=== PATIENT | female | born 1980 | race Two or more races ===

== ENCOUNTER 2017-06-12 08:25 | Inpatient (IN) | payer OTHER ==
--- NOTE | 2017-06-12 09:38 | HP ---
Past Medical History - Admission History of Present Illness: 37 yo @ 39 3/7 wks by first trimester ultrasound, EDC complicated by: 1. cHTN - previously on labetalol, DC'd first trimester BP range 115-153/76-99 r/o PEC, negative HELLP labs 24 H urine protein - 198 (05/15/2017) 2. AMA - s/p favorable [id number], favorable AFP EFW 2424g (13%) Patient presents for scheduled induction of labor. She reports movement, denies leakage of fluid, vaginal bleeding or pain. History Source: Patient Limitations to Obtaining History: No Limitations - Past Medical History Cardiovascular: No: HTN Pulmonary: No: Asthma Reproductive: Yes: Polycystic Ovary Syndrome ...: 1 ...Para: 0 ... Weeks Gestation by Dates: 39.3 ...EDC by Sono: 06/16/17 Heme/Onc: No: Anemia Rheumatology: Yes: Fibromyalgia - Past Surgical History Hx Myomectomy: No Hx Transabdominal Cerclage: No Additional Surgical History: Corrective eye surgery - Smoking History Smoking history: Never smoked - Alcohol/Substance Use Hx Alcohol Use: No History of Substance Use: reports: None - Social History Usual Living Arrangement: Yes: With Spouse History of Recent Travel: No Home Medications - Allergies Allergies/Adverse Reactions: Allergies Allergy/AdvReac Type Severity Reaction Status Date / Time No Known Allergies Allergy Verified 06/12/17 09:47 - Home Medications Home Medications: Ambulatory Orders Ferrous Sulfate 325 mg PO DAILY 05/13/17 Pnv No.95/Ferrous Fum/Folic AC [ Vitamin Tablet] 1 each PO DAILY Family Disease History - Family Disease History Family History: Denies Review of Systems - Review of Systems Constitutional: reports: No Symptoms HENT: reports: No Symptoms Cardiovascular: reports: No Symptoms Respiratory: reports: No Symptoms Gastrointestinal: reports: No Symptoms Genitourinary: reports: No Symptoms Musculoskeletal: reports: No Symptoms Integumentary: reports: No Symptoms Neurological: reports: No Symptoms Endocrine: reports: No Symptoms Hematology/Lymphatic: reports: No Symptoms Psychiatric: reports: No Symptoms Physical Exam - Maternity Constitutional: Yes: Well Nourished, No Distress, Calm Cardiovascular: Yes: Regular Rate and Rhythm Lungs: Clear to auscultation - Abdominal Exam/OB Number of Fetuses: Single Presentation: Vertex Contractions: Yes Regularity: Irregular Monitor Mode: External Heart Rate (range): 155 Category: I Accelerations: Non-Uniform Decelerations: None - Physical Exam Psychiatric: Yes: Alert, Oriented - Labs Lab Results: PNL - B positive, antibody negative; RPR NR; HBS Ag negative; Rubella Immune; HIV negative; GBS positive; Elevated 1 H GCT; normal 3 H GTT Hemorrhage Risk Assessment - Risk Factors Medium Risk Factors: Yes: None High Risk Factors: Yes: None Risk Score: 1 Risk Level: Medium Risk Assessment/Plan 37 yo @ 39 3/7 wks, induction of labor for cHTN 1. Admit to L&D 2. Consents reviewed and signed 3. Routine labs collected and sent 4. GBS positive - no PCN allergy; will start ampicillin per protocol 5. Will start pitocin for induction of labor. Reviewed risks of uterine hyperstimuation, intolerance of labor / heart rate changes, need for emergent delivery, induction failure resulting in delivery. She expressed understanding 6. Will offer pain medication upon patient request 7. Will proceed with expectant management
[2017-06-12 10:14] VITALS: BMI 33.5
[2017-06-12] MEDS: OXYTOCIN 15 UNITS/ LR 250 ML 15 UNIT/250 ML INFUS.BAG IVPB SCH (10:45)
[2017-06-12] MEDS: ELECTROLYTE-148 SOLN 1,000 ML IV SCH ×2 (10:54→18:15)
[2017-06-12 11:17] LABS: BASO % 0.2 % (0-2.0); EOS % 0.5 % (0-4.5); HEMATOCRIT 34.2 % (32.4-45.2); HEMOGLOBIN 11.7 GM/dL (10.7-15.3); LYMPH % 14.5 % (8-40); MCH 31.5 pg (25.7-33.7); MCHC 34.1 g/dl (32.0-36.0); MEAN CELL VOLUME 92.3 fl (80-96); MEAN PLT VOLUME 7.7 fl (7.5-11.1); MONO % 6.3 % (3.8-10.2); NEUT % 78.5 % (42.8-82.8); PLATELET COUNT 212 K/MM3 (134-434); RDW 14.6 % (11.6-15.6)
[2017-06-12 11:36] LABS: INR 0.91 (0.82-1.09); PROTHROMBIN TIME (PATIENT) 10.3 SEC (9.98-11.88)
[2017-06-12 11:38] LABS: ACTIVATED PTT 29.2 SECONDS (26.9-34.4)
[2017-06-12 11:56] LABS: ALBUMIN 2.8 g/dl (3.4-5.0); ALK PHOS 149 U/L (45-117); ANION GAP 10 (8-16); BILIRUBIN,TOTAL 0.2 mg/dL (0.2-1.0); BLOOD UREA NITROGEN 10 mg/dL (7-18); CALCIUM 8.8 mg/dL (8.5-10.1); CHLORIDE 106 mmol/L (98-107); CO2 25 mmol/L (21-32); CREATININE 0.5 mg/dL (0.55-1.02); GLUCOSE,RANDOM 83 mg/dL (74-106); SGOT/AST 19 U/L (15-37); SGPT/ALT 16 U/L (12-78); SODIUM 141 mmol/L (136-145); TOT PROT 6.2 g/dl (6.4-8.2); URIC ACID 4.4 mg/dL (2.6-7.2)
[2017-06-12] MEDS ORDERED: LABETALOL HCL 5 MG/1 ML (100MG/20 ML VIAL) IVPB ONE ×3 (12:10→19:45)
[2017-06-12] MEDS ORDERED: LABETALOL HCL 5 MG/1 ML (100MG/20 ML VIAL) ONE (12:17)
[2017-06-12 12:51] LABS: URINE APPEARANCE SLCLOUDY; URINE BILIRUBIN NEGATIVE (NEGATIVE); URINE BLOOD NEGATIVE (NEGATIVE); URINE COLOR AMBER; URINE GLUCOSE (UA) 1+ (NEGATIVE); URINE KETONE TRACE (NEGATIVE); URINE LEUK ESTERASE NEGATIVE (NEGATIVE); URINE NITRITE NEGATIVE (NEGATIVE); URINE UROBILINOGEN 4.0 E.U/dl mg/dL (0.2-1.0)
[2017-06-12 12:53] LABS: URINE PROTEIN 1+ (NEGATIVE)
[2017-06-12 12:54] LABS: EPI CELLS MODERATE /HPF (FEW); URINE BACTERIA RARE /hpf (NONE SEEN); URINE HYALINE CAST 2 /lpf; URINE MUCUS MANY
[2017-06-12] MEDS ORDERED: LABETALOL HCL 200 MG TABLET (FP) PO ONE (15:20)
[2017-06-12] MEDS ORDERED: LABETALOL HCL 200 MG TABLET (FP) ONE (15:25)
--- NOTE | 2017-06-12 19:00 | RAPID ---
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 Pt reported sharp nonradiating chest pain under her L breast that was improved upon deep inspiration. Pt reports the pain lasting a few minutes and then being alleviated. Pt also reports some URI symptoms prior to today with cough and rhinorrhea. Denies any jaw claudication, sweating, SOB, or L arm numbness currently PE: VS: SpO2 97%, HR 66, BP 190/81, repeat showing 190/88 Gen: Pt at bed side, awake alert Lungs: CTA b/l. No accessory muscle use Cards: RRR, S1 and S2 present no murmurs appreciated Abd: Gravid Extremities: no edema noted A/P Most likely musculoskeletal EKG showing NSR at 62 BPM with LVH criteria, J-point repolarizations noted in I and avL with no TWI Troponins being sent --Recommend repeat EKG and Troponins in 6 hours despite low suspicion of event Sales Person Dr. Veloz on the way Labs: CBC, BMP 06/12/17 10:50 06/12/17 10:50
[2017-06-12] MEDS ORDERED: AMPICILLIN SODIUM 2 GM VIAL ONE (19:16)
[2017-06-12 19:30] LABS: GAMMA GLUTAMYL TRANSPEPTIDASE 8 U/L (5-85); SGPT/ALT 14 U/L (12-78)
[2017-06-12 19:33] LABS: URIC ACID 4.4 mg/dL (2.6-7.2)
--- NOTE | 2017-06-12 19:41 | PN ---
Ante-Partal Exam - Subjective Subjective: Called to patient bedside for elevated BP, L sided chest pain Rapid Response called, Low suspicion cardiac event Cardiac enzymes pending No pain now Occasional contraction / pressure No headache, change in vision, right upper quadrant pain Vital Signs: Vital Signs Temperature 98.1 F 06/12/17 17:00 Pulse Rate 73 06/12/17 19:00 Respiratory Rate 18 06/12/17 19:00 Blood Pressure 169/101 06/12/17 19:00 O2 Sat by Pulse Oximetry (%) Bleeding: No Headache: No Visual changes: No Right upper quadrant pain: No - Contractions Contractions: Yes Regularity: Irregular Monitor Mode: External - Exam during Labor Heart Rate: 1,450 Variability: Moderate Category: I Monitor Accelerations: Absent Monitor Decelerations: None Exam: Vaginal Dilatation (cm): 3 Effacement (%): 10 Amniotic Membrane Status: Ruptured Amniotic Fluid: Clear Presentation: Vertex Station: -2 - Intrapartum Hemorrhage Risk Medium Risk Factors: None High Risk Factors: None Risk Score: 0 Risk Level: Low Risk - Assessment/Plan Assessment/Plan: 37 yo IOL cHTN 1. BP 191/101 - labetalol 40 mg given IV push over 2 minutes --> R BP 170/90 -- > 165/91 -->156/86 repeat HELLP labs pending 2. AROM performed, clear fluid noted 3. GBS positive, will start ampicillin per protocol 4. Category I FHT 5. Will continue expectant management
[2017-06-12] MEDS ORDERED: TUBERCULIN PPD 5 TU/0.1ML SYRINGE (IN PATIENT USE ONLY) ID ONE (19:45)
[2017-06-12] MEDS ORDERED: AMPICILLIN - 2 GM in SODIUM CHLORIDE 100 ML IVPB ONE (19:45)
[2017-06-12] MEDS ORDERED: hydrALAZINE HCL 20 MG/ML VIAL IVPUSH ONE (20:36)
[2017-06-12] MEDS ORDERED: hydrALAZINE HCL 20 MG/ML VIAL ONE (20:41)
[2017-06-12] MEDS ORDERED: FENTANYL/BUPIVACAINE/NS/PF - PCEA - 50 ML DISP.SYRIN EP ONE (20:41)
[2017-06-12] MEDS ORDERED: MAGNESIUM SULFATE 20GM/500ML - 20 GM/500 ML INFUS.BAG ONE (21:04)
[2017-06-12] MEDS ORDERED: MAGNESIUM 4GM/H20 - 4 GM/100 ML IVPB IVPB ONE ×2 (21:04→21:25)
[2017-06-12] MEDS ORDERED: ELECTROLYTE-148 SOLN 1,000 ML IV SCH ×2 (21:25)
--- NOTE | 2017-06-12 21:29 | PN ---
Progress Note (short form) - Note Progress Note: Persistent BP elevation 171/81 --> 177/83 given 5 mg Hydralazine IV Push 187/102 -->195/84 --> 201/92 --> 160/102 --> 186/85 --> 158/87 Denies any change in vision, RUQ pain, scotomata, headache, chest pain, shortness of breath Magnesium 4 g load given, will start Magnesium for seizure prophylaxis for suspected preeclampsia Will continue to monitor BP
[2017-06-12] MEDS: MAGNESIUM SULFATE 20GM/500ML - 20 GM/500 ML INFUS.BAG IVPB SCH (21:55)
[2017-06-12] MEDS ORDERED: AMPICILLIN SODIUM 1 GM VIAL ONE (22:40)
[2017-06-12] MEDS: AMPICILLIN - 1 GM in SODIUM CHLORIDE 100 ML IVPB SCH (23:00)
[2017-06-12] MEDS ORDERED: NALOXONE HCL 0.4 MG/ML VIAL IVPUSH PRN (23:19)
[2017-06-12] MEDS ORDERED: FENTANYL/BUPIVACAINE/NS/PF - PCEA - 50 ML DISP.SYRIN EP SCH (23:30)
--- NOTE | 2017-06-13 02:13 | PN ---
Ante-Partal Exam - Subjective Subjective: Patient reports occasional pressure Vital Signs: Vital Signs Temperature 98.1 F 06/13/17 00:00 Pulse Rate 76 06/13/17 00:15 Respiratory Rate 18 06/13/17 00:15 Blood Pressure 125/76 06/13/17 00:15 O2 Sat by Pulse Oximetry (%) Bleeding: No Headache: No Visual changes: No Right upper quadrant pain: No - Contractions Contractions: Yes Regularity: Regular Intensity: Moderate Monitor Mode: External - Exam during Labor Heart Rate: 130 Variability: Moderate Category: I Monitor Accelerations: Present Monitor Decelerations: None Exam: Vaginal Dilatation (cm): 4-5 Amniotic Membrane Status: Ruptured Amniotic Fluid: Clear Presentation: Vertex Station: -1 - Intrapartum Hemorrhage Risk Medium Risk Factors: None High Risk Factors: None Risk Score: 0 Risk Level: Low Risk - Assessment/Plan Assessment/Plan: 37 yo IOL for cHTN, now PEC 1. Will continue pitocin per protocol, pitocin on 4, now will increase to 5 2. BPs without need for intervention, will continue magnesium sulfate. No s/sx PEC, PEC precautions reviewed 3. GBS positive - on ampicillin 4. Pain well controlled with epidural 5. Category I FHT 6. Will proceed with expectant management
[2017-06-13] MEDS ORDERED: AMPICILLIN SODIUM 1 GM VIAL ONE ×2 (02:59→06:35)
[2017-06-13] MEDS: AMPICILLIN - 1 GM in SODIUM CHLORIDE 100 ML IVPB SCH ×4 (03:00→15:15)
[2017-06-13] MEDS ORDERED: FENTANYL/BUPIVACAINE/NS/PF - PCEA - 50 ML DISP.SYRIN EP ONE ×2 (04:01→06:19)
[2017-06-13] MEDS ORDERED: MAGNESIUM SULFATE 20GM/500ML - 20 GM/500 ML INFUS.BAG ONE (07:53)
[2017-06-13] MEDS: MAGNESIUM SULFATE 20GM/500ML - 20 GM/500 ML INFUS.BAG IVPB SCH (08:00)
--- NOTE | 2017-06-13 08:03 | PN ---
Ante-Partal Exam - Subjective Subjective: Patient reports pressure Denies CARDOZA, change in vision, RUQ pain Vital Signs: Vital Signs Temperature 97.6 F 06/13/17 07:00 Pulse Rate 78 06/13/17 07:45 Respiratory Rate 17 06/13/17 07:45 Blood Pressure 139/79 06/13/17 07:45 O2 Sat by Pulse Oximetry (%) 100 06/12/17 23:15 Bleeding: No Headache: No Visual changes: No Right upper quadrant pain: No - Contractions Contractions: Yes Regularity: Regular Intensity: Mod/Strong Monitor Mode: External - Exam during Labor Heart Rate: 135 Variability: Moderate Category: I Monitor Accelerations: Present Monitor Decelerations: None Exam: Vaginal Dilatation (cm): 9 Effacement (%): 100 Amniotic Membrane Status: Ruptured Station: +1 - Intrapartum Hemorrhage Risk Medium Risk Factors: None High Risk Factors: None Risk Score: 0 Risk Level: Low Risk - Assessment/Plan Assessment/Plan: 37 yo IOL for cHTN / PEC 1. excellent cervical change, continue pitocin per protocol. 2. gbs positive, on ampicillin 3. category I FHT 4. Pain well controlled with epidural 5. will proceed with expectant management
[2017-06-13] MEDS ORDERED: OXYTOCIN 20 UNITS in 0.9% NS 20 UNIT/1,000 ML INFUS.BAG IV ONE (09:06)
[2017-06-13] MEDS ORDERED: LIDOCAINE HCL 1% PRESERVATIVE FREE - 30ML VIAL ONE (09:07)
--- NOTE | 2017-06-13 10:01 | PN ---
Delivery - Delivery Vaginal Delivery: No Problems Type of Anesthesia: Epidural Episiotomy/Laceration: 2nd degree EBL (cc): 400 Delivery, Single - Stages of Labor Date 1st Stage Initiatied: 06/12/17 Time 1st Stage Initiated: 21:00 Date 2nd Stage Initiated: 06/13/17 Time 2nd Stage Initiated: 09:05 Date of Delivery: 06/13/17 Time of Delivery: 09:34 Date Placenta Delivered: 06/13/17 Time Placenta Delivered: 09:48 Placenta: Yes: Spontaneous - Condition of Gender: Female Position: Left, OA Total Hours ROM (Hrs/Mins): 14 hours 33 minutes - 1 Minute Total Score: 9 5 Minutes Total Score: 9 - Feeding Plan Initial Plan: Elected not to breastfeed exclusively throughout hospitalization Remarks - Remarks Remarks: Patient progressed to fully dilated and at 0934 via delivered a viable female infant in DEXTER position, APGARs 9,9. Weight and length unknown at this time. Head delivered spontaneously, left posterior compound hand noted, shoulders and body without difficulty. with spontaneous cry and placed on mother's abdomen. Nose and mouth was bulb suctioned. Cord was clamped and cut. Perineum and vagina examined, a second degree laceration was noted and repaired in the usual fashion. Rectal exam revealed no sutures in rectum. Placenta was delivered spontaneously and intact. 20 units of pitocin in 1 L IVF was given. All counts correct x 2. Mother and infant stable in LDR. EBL 400cc.
[2017-06-13] MEDS ORDERED: WITCH HAZEL 50% (TUCKS) 40 PAD/JAR PAD TP PRN (10:02)
[2017-06-13] MEDS ORDERED: BISACODYL 10 MG SUPP.RECT RC PRN (10:02)
[2017-06-13] MEDS ORDERED: METHYLERGONOVINE MALEATE 0.2 MG/1 ML AMP IM PRN (10:02)
[2017-06-13] MEDS ORDERED: BENZOCAINE 20% 57 GM BOTTLE TP PRN (10:02)
[2017-06-13] MEDS ORDERED: BENZOCAINE 28 GM HEMORRHOIDAL OINTMENT TP PRN (10:02)
[2017-06-13] MEDS ORDERED: OXYTOCIN 20 UNITS in 0.9% NS 20 UNIT/1,000 ML INFUS.BAG IV SCH (10:15)
[2017-06-13 10:55] LABS: HEMATOCRIT 34.5 % (32.4-45.2); HEMOGLOBIN 11.6 GM/dL (10.7-15.3); MCH 31.1 pg (25.7-33.7); MCHC 33.5 g/dl (32.0-36.0); MEAN CELL VOLUME 92.8 fl (80-96); PLATELET COUNT 225 K/MM3 (134-434); RBC 3.72 M/mm3 (3.60-5.2); RDW 14.4 % (11.6-15.6); WHITE BLOOD COUNT 14.8 K/mm3 (4.0-10.0)
--- NOTE | 2017-06-13 11:33 | EKG ---
Test Reason : Blood Pressure : / mmHG Vent. Rate : 074 BPM Atrial Rate : 074 BPM P-R Int : 136 ms QRS Dur : 082 ms QT Int : 420 ms P-R-T Axes : 014 003 009 degrees QTc Int : 466 ms NORMAL SINUS RHYTHM VOLTAGE CRITERIA FOR LEFT VENTRICULAR HYPERTROPHY NO PREVIOUS ECGS AVAILABLE Confirmed by RASHARD FERRARI MD ([id number]) on 06/13/2017 11:32:43 AM Referred By: Confirmed By:RASHARD FERRARI MD
[2017-06-13] MEDS: OXYTOCIN 15 UNITS/ LR 250 ML 15 UNIT/250 ML INFUS.BAG IVPB SCH (13:27)
[2017-06-13] MEDS: NIFEdipine E.R. 30 MG TABLET (FP) PO SCH (14:24)
[2017-06-13] MEDS: ACETAMINOPHEN 325 MG TABLET (FP) PO PRN (21:40)
[2017-06-14] MEDS: oxyCODONE HCL 5 MG TABLET PO PRN ×2 (07:50→21:01)
[2017-06-14] MEDS: ACETAMINOPHEN 325 MG TABLET (FP) PO PRN ×2 (07:50→21:00)
[2017-06-14 08:48] LABS: BASO % 0.2 % (0-2.0); EOS % 0.4 % (0-4.5); HEMATOCRIT 28.8 % (32.4-45.2); HEMOGLOBIN 9.5 GM/dL (10.7-15.3); LYMPH % 16.3 % (8-40); MEAN CELL VOLUME 93.8 fl (80-96); MEAN PLT VOLUME 8.1 fl (7.5-11.1); MONO % 5.9 % (3.8-10.2); NEUT % 77.2 % (42.8-82.8); PLATELET COUNT 211 K/MM3 (134-434); RBC 3.07 M/mm3 (3.60-5.2); RDW 14.7 % (11.6-15.6); WHITE BLOOD COUNT 11.6 K/mm3 (4.0-10.0)
[2017-06-14] MEDS: NIFEdipine E.R. 30 MG TABLET (FP) PO SCH (09:54)
[2017-06-14] MEDS ORDERED: SIMETHICONE 80 MG TAB.CHEW (FP) PO PRN (10:44)
--- NOTE | 2017-06-14 11:07 | PN ---
Post Progress Note - Subjective Subjective: Patient without acute complaints. Denies headache, change in vision, right upper quadrant pain. Reports tolerating oral intake without nausea or vomiting. Ambulating without dizziness. Denies fevers or chills. Pain well controlled with oral pain medication. without difficulty. Passing flatus. Post Day: 1 Type of Delivery: Vital Signs: Vital Signs Temperature 97.7 F 06/14/17 09:10 Pulse Rate 76 06/14/17 09:10 Respiratory Rate 20 06/14/17 09:10 Blood Pressure 148/81 06/14/17 09:10 O2 Sat by Pulse Oximetry (%) 95 06/13/17 10:50 Breast Exam: Yes: Soft Uterus: Yes: Fundus Firm, Fundus below umbilicus Abdomen/GI: Yes: Abdomen soft, Passing flatus, Tolerating PO. No: Abdominal Distention, Tender Lochia: Yes: Serosa Lochia, amount: Moderate Extremities: Yes: Calves non-tender, Edema (trace) Perineum: Yes: Laceration Activity: Ambulating - Labs Labs: CBC WBC 11.6 K/mm3 (4.0-10.0) H 06/14/17 07:00 RBC 3.07 M/mm3 (3.60-5.2) L 06/14/17 07:00 Hgb 9.5 GM/dL (10.7-15.3) L D 06/14/17 07:00 Hct 28.8 % (32.4-45.2) L D 06/14/17 07:00 MCV 93.8 fl (80-96) 06/14/17 07:00 MCH 31.0 pg (25.7-33.7) 06/14/17 07:00 MCHC 33.0 g/dl (32.0-36.0) 06/14/17 07:00 RDW 14.7 % (11.6-15.6) 06/14/17 07:00 Plt Count 211 K/MM3 (134-434) 06/14/17 07:00 MPV 8.1 fl (7.5-11.1) 06/14/17 07:00 Neutrophils % 77.2 % (42.8-82.8) 06/14/17 07:00 Lymphocytes % 16.3 % (8-40) 06/14/17 07:00 Monocytes % 5.9 % (3.8-10.2) 06/14/17 07:00 Eosinophils % 0.4 % (0-4.5) 06/14/17 07:00 Basophils % 0.2 % (0-2.0) 06/14/17 07:00 Retic Count 1.70 % (0.5-1.5) H D 06/12/17 18:55 Haptoglobin 75 mg/dL (34-200) 06/12/17 10:50 Assessment/Plan 37 yo PPD #1 s/p , IOL for cHTN --> PEC currently on procardia with adequate BP control; mild asymptomaic anemia, afebrile, vital signs stable, donig well 1. Continue routine care. 2. AM CBC without asymptomatic anemia 3. Rh positive status, no rhogam indicated. 4. Encourage ambulation and incentive spirometer use 5. Continue oral pain medication 6. PEC Precautions reviewed 7. To continue procardia 8. Will monitor BP, may consider BP home PPD #2
[2017-06-14] MEDS ORDERED: SENNOSIDES/DOCUSATE COMBO (SENNA PLUS) TABLET (UD) PO PRN (22:00)
[2017-06-15] MEDS: NIFEdipine E.R. 30 MG TABLET (FP) PO SCH ×2 (08:16→10:23)
--- NOTE | 2017-06-15 08:26 | PN ---
Post Progress Note - Subjective Subjective: Patient without acute complaints. Denies headache, change in vision, right upper quadrant pain. Reports tolerating oral intake without nausea or vomiting. Ambulating without dizziness. Denies fevers or chills. Pain well controlled with oral pain medication. without difficulty. Passing flatus. Post Day: 2 Type of Delivery: Vital Signs: Vital Signs Temperature 98.3 F 06/15/17 05:23 Pulse Rate 76 06/15/17 05:23 Respiratory Rate 20 06/15/17 05:23 Blood Pressure 154/73 06/15/17 05:23 O2 Sat by Pulse Oximetry (%) 95 06/13/17 10:50 Breast Exam: Yes: Engorged Uterus: Yes: Fundus Firm, Fundus below umbilicus Abdomen/GI: Yes: Abdomen soft, Passing flatus, Tolerating PO. No: Abdominal Distention, Tender Lochia: Yes: Serosa Lochia, amount: Small Extremities: Yes: Calves non-tender, Edema (trace) Perineum: Yes: Laceration Activity: Ambulating - Labs Labs: CBC WBC 11.6 K/mm3 (4.0-10.0) H 06/14/17 07:00 RBC 3.07 M/mm3 (3.60-5.2) L 06/14/17 07:00 Hgb 9.5 GM/dL (10.7-15.3) L D 06/14/17 07:00 Hct 28.8 % (32.4-45.2) L D 06/14/17 07:00 MCV 93.8 fl (80-96) 06/14/17 07:00 MCH 31.0 pg (25.7-33.7) 06/14/17 07:00 MCHC 33.0 g/dl (32.0-36.0) 06/14/17 07:00 RDW 14.7 % (11.6-15.6) 06/14/17 07:00 Plt Count 211 K/MM3 (134-434) 06/14/17 07:00 MPV 8.1 fl (7.5-11.1) 06/14/17 07:00 Neutrophils % 77.2 % (42.8-82.8) 06/14/17 07:00 Lymphocytes % 16.3 % (8-40) 06/14/17 07:00 Monocytes % 5.9 % (3.8-10.2) 06/14/17 07:00 Eosinophils % 0.4 % (0-4.5) 06/14/17 07:00 Basophils % 0.2 % (0-2.0) 06/14/17 07:00 Retic Count 1.70 % (0.5-1.5) H D 06/12/17 18:55 Haptoglobin 75 mg/dL (34-200) 06/12/17 10:50 Assessment/Plan 37 yo PPD #2 s/p , IOL for cHTN --> PEC currently on procardia with adequate BP control; mild asymptomaic anemia, afebrile, vital signs stable, donig well 1. Patient stable for discharge home today. Encouraged to continue procardia for adequate BP control 2. Patient encouraged to contact MD for: - Severe pain not controlled by oral pain medication - Fevers or chills - Nausea or vomiting, intolerance of oral intake - Headache, change in vision, right upper quadrant pain, chest pain, shortness of breath 3. Patient to follow up in office in 1 week for blood pressure check, 4-6 weeks for visit
--- NOTE | 2017-06-15 08:29 | DS ---
Physical Exam-[employer] Vital Signs: Vital Signs Temperature 98.3 F 06/15/17 08:10 Pulse Rate 73 06/15/17 08:10 Respiratory Rate 20 06/15/17 08:10 Blood Pressure 157/85 06/15/17 08:10 O2 Sat by Pulse Oximetry (%) 95 06/13/17 10:50 Labs: CBC, BMP 06/14/17 07:00 06/12/17 10:50 Delivery - Delivery Vaginal Delivery: No Problems Type of Anesthesia: Local, Epidural Episiotomy/Laceration: 2nd degree EBL (cc): 400 Delivery, Single - Stages of Labor Date 1st Stage Initiatied: 06/12/17 Time 1st Stage Initiated: 21:00 Date 2nd Stage Initiated: 06/13/17 Time 2nd Stage Initiated: 09:05 Date of Delivery: 06/13/17 Time of Delivery: 09:34 Time Placenta Delivered: 09:48 Placenta: Yes: Spontaneous - Condition of Actuarial Science Professor/Senior Internal Auditor Present: Yes Name: Alvarez Mar Gender: Female Weight: 6 lb 2 oz Position: Left, OA Total Hours ROM (Hrs/Mins): 14 hours 33 minutes - 1 Minute Total Score: 9 5 Minutes Total Score: 9 - Feeding Plan Initial Plan: Elected not to breastfeed exclusively throughout hospitalization Discharge Summary Reason For Visit: FOR DELIVERY, INDUCTION Current Active Problems Anemia (Acute) Hypertension affecting (Acute) Vaginal delivery (Acute) Procedures: Principal: vaginal delivery Other Procedures: induction of labor; administration of BP medication; administration of magnesium Hospital Course: Patient admitted for IOL for cHTN, started on pitocin Intrapartum noted elevated BP, requring labetalol 20 IVPB, labetalol 20 IVpush, 5 hydralazine IV push Started on magenesium for severe-range BPs BP stablized after epidural s/p PPD #0 continued BP elevation, started on Procardia 30 XL PPD #1 adequate BP control with medication, ambulating, voiding, passing flatus , breast feeding, adequate pain control Patient stable for DC home PPD #2 Condition: Good - Instructions Diet, Activity, Other Instructions: RTO 1 wk for BP check Physical activity Resume your normal everyday activity as tolerated no heavy lifting or exercise until seen by your surgeon. You may walk unlimited dinora of and climb stairs. You may resume driving the car when you feel safe and comfortable behind the wheel. No sexual activity as instructed. Diet There are no dietary restrictions. Eat healthy, high-fiber foods. Drink 6 to 8 glasses of liquid each day. This will assist in keeping your bowels are regular. Pain management You may take Tylenol or acetaminophen or Ibuprofen (for example, Motrin, Advil etc.) from my pain prescription medication is ordered should be taken as prescribed for moderate to severe pain. Call MD for any of the following: Headache, change in vision, right upper quadrant pain Severe pain not relieved by medication Fever of 101 or higher Excessive bleeding or drainage on dressing Inability to urinate Disposition: HOME - Home Medications Comprehensive Discharge Medication List: Ambulatory Orders Ferrous Sulfate 325 mg PO DAILY 05/13/17 Pnv No.95/Ferrous Fum/Folic AC [ Vitamin Tablet] 1 each PO DAILY Nifedipine ER [Procardia XL -] 30 mg PO DAILY #30 tab.er.[id number] 06/14/17
[2017-06-15 10:30] VITALS: BP 143/74; PULSE 77; TEMP 98
== END 2017-06-15 15:00 | disposition home or self-care (01) | DRG 774 ==
LOC: JLDR 08:25 → J3W 06-13 16:00
PROVIDERS: ADMIT Obstetrics & Gynecology; ATTEND Obstetrics & Gynecology
PROC: 10E0XZZ Delivery of Products of Conception, External Approach (ICD-10-PCS; principal; 2017-06-13)
PROC: 0KQM0ZZ Repair Perineum Muscle, Open Approach (ICD-10-PCS; 2017-06-13)
PROC: 0W8NXZZ Division of Female Perineum, External Approach (ICD-10-PCS; 2017-06-13)
DX: O16.3 Unspecified maternal hypertension, third trimester (principal); O70.1 Second degree perineal laceration during delivery; O99.02 Anemia complicating childbirth; Z3A.39 39 weeks gestation of pregnancy; Z22.330 Carrier of Group B streptococcus; Z37.0 Single live birth
CPT/HCPCS: 36415; 59409; 80053; 81003; 81015; 82550; 82553; 82977; 83010; 83735; 84460; 84484; 84550; 85025; 85027; 85044; 85610; 85730; 86593; 86850; 86900; 86901; 93005; 93010

== ENCOUNTER 2021-10-10 14:07 | Inpatient (IN) | payer OTHER ==
[2021-10-10 16:27] LABS: BASO % 0.2 % (0-2.0); EOS % 0.4 % (0-4.5); HEMATOCRIT 34.8 % (32.4-45.2); HEMOGLOBIN 11.8 GM/dL (10.7-15.3); LYMPH % 20.7 % (8-40); MCH 31.5 pg (25.7-33.7); MCHC 33.9 g/dl (32.0-36.0); MEAN PLT VOLUME 8.7 fl (7.5-11.1); MONO % 5.6 % (3.8-10.2); NEUT % 73.1 % (42.8-82.8); PLATELET COUNT 205 10^3/uL (134-434); RBC 3.74 M/mm3 (3.60-5.2); RDW 13.7 % (11.6-15.6); WHITE BLOOD COUNT 7.6 K/mm3 (4.0-10.0)
[2021-10-10 16:34] LABS: INR 0.9 (0.83-1.09); PROTHROMBIN TIME (PATIENT) 10.3 SEC (9.7-13.0)
[2021-10-10 16:37] LABS: ACTIVATED PTT 27.8 SECONDS (25.2-36.5)
[2021-10-10 16:45] LABS: EPI CELLS 18 /uL (0-25.1); HYALINE CASTS 6 /uL (0-3.1); URINE APPEARANCE CLOUDY; URINE BACTERIA 2404 /uL (0-1359); URINE BILIRUBIN NEGATIVE (NEGATIVE); URINE COLOR YELLOW; URINE GLUCOSE (UA) NEGATIVE (NEGATIVE); URINE KETONE 3+ (NEGATIVE); URINE LEUK ESTERASE TRACE (NEGATIVE); URINE NITRITE NEGATIVE (NEGATIVE); URINE PROTEIN TRACE (NEGATIVE); URINE WBC 124 /uL (0-25.8)
[2021-10-10 16:53] LABS: CALCIUM 8.9 mg/dL (8.5-10.1)
[2021-10-10 16:54] LABS: BLOOD UREA NITROGEN 11.3 mg/dL (7-18)
[2021-10-10 16:57] LABS: CREATININE 0.6 mg/dL (0.55-1.3); URIC ACID 4.9 mg/dL (2.6-7.2)
[2021-10-10 17:01] VITALS: BMI 31.2
[2021-10-10 17:38] LABS: URINE RBC 21.6 /uL (0-23.9)
[2021-10-10] MEDS: DEXTROSE 5%-LACTATED RINGERS 1,000 ML IV SCH (18:15)
[2021-10-10] MEDS ORDERED: OXYTOCIN 30 UNITS in 0.9% NS 30 UNIT/500 ML INFUS.BAG IVPB ONE (20:05)
[2021-10-10] MEDS: OXYTOCIN 30 UNITS in 0.9% NS 30 UNIT/500 ML INFUS.BAG IVPB SCH (20:10)
[2021-10-11] MEDS: ELECTROLYTE-148 SOLN 1,000 ML IV SCH (01:15)
[2021-10-11] MEDS ORDERED: FENTANYL/BUPIVACAINE/NS/PF - PCEA - 50 ML DISP.SYRIN EP ONE (02:39)
[2021-10-11] MEDS ORDERED: BUPIVACAINE HCL/PF 0.25% (2.5MG/ML) 10 ML VIAL ONE ×2 (02:45)
[2021-10-11] MEDS ORDERED: NALOXONE HCL 0.4 MG/ML VIAL IVPUSH PRN (03:09)
[2021-10-11] MEDS ORDERED: FENTANYL/BUPIVACAINE/NS/PF - PCEA - 50 ML DISP.SYRIN EP SCH (03:15)
[2021-10-11] MEDS ORDERED: LIDOCAINE HCL 1% PRESERVATIVE FREE - 30ML VIAL ONE (04:19)
[2021-10-11] MEDS ORDERED: OXYTOCIN 20 UNITS in 0.9% NS 20 UNIT/1,000 ML INFUS.BAG IV ONE (04:19)
[2021-10-11] MEDS ORDERED: oxyCODONE HCL 5 MG TABLET PO PRN (05:04)
[2021-10-11] MEDS ORDERED: BISACODYL 10 MG SUPP.RECT RC PRN (05:04)
[2021-10-11] MEDS ORDERED: BENZOCAINE 20% 57 GM BOTTLE TP PRN (05:04)
[2021-10-11] MEDS ORDERED: WITCH HAZEL 50% (TUCKS) 40 PAD/JAR PAD TP PRN (05:04)
[2021-10-11] MEDS ORDERED: ACETAMINOPHEN 325 MG TABLET (FP) PO PRN (05:04)
[2021-10-11] MEDS ORDERED: METHYLERGONOVINE MALEATE 0.2 MG/1 ML AMP IM PRN (05:04)
[2021-10-11] MEDS ORDERED: BENZOCAINE 28 GM HEMORRHOIDAL OINTMENT TP PRN (05:04)
[2021-10-11] MEDS ORDERED: OXYTOCIN 20 UNITS in 0.9% NS 20 UNIT/1,000 ML INFUS.BAG IV SCH (05:15)
[2021-10-11 06:14] LABS: CORD BASE EXCESS -5.2 mmol/L (0-2); CORD HCO3 22.7 mmHg (20-29); CORD PCO2 53.9 mmHg (30-78); CORD pH 7.242 (7.14-7.44)
[2021-10-11] MEDS ORDERED: ACETAMINOPHEN 325 MG TABLET (FP) ONE (06:17)
[2021-10-11 06:19] LABS: CORD PCO2 49.7 mmHg (30-78); CORD pH 7.284 (7.14-7.44)
[2021-10-11] MEDS: NIFEdipine E.R 60 MG TABLET PO SCH (09:27)
[2021-10-12] MEDS: IBUPROFEN 600 MG TABLET (FP) PO PRN ×2 (06:20→19:30)
[2021-10-12 09:36] LABS: BASO % 0.4 % (0-2.0); EOS % 0.5 % (0-4.5); HEMATOCRIT 31.7 % (32.4-45.2); HEMOGLOBIN 11.1 GM/dL (10.7-15.3); MCH 32.2 pg (25.7-33.7); MEAN PLT VOLUME 8.6 fl (7.5-11.1); NEUT % 75.1 % (42.8-82.8); PLATELET COUNT 178 10^3/uL (134-434); RBC 3.44 M/mm3 (3.60-5.2); RDW 13.8 % (11.6-15.6); WHITE BLOOD COUNT 9.9 K/mm3 (4.0-10.0)
[2021-10-12] MEDS: NIFEdipine E.R 60 MG TABLET PO SCH (09:54)
[2021-10-12] MEDS: ELECTROLYTE-148 SOLN 1,000 ML IV SCH (19:05)
[2021-10-12] MEDS: FENTANYL/BUPIVACAINE/NS/PF - PCEA - 50 ML DISP.SYRIN EP SCH ×2 (19:05→19:06)
[2021-10-12] MEDS: DEXTROSE 5%-LACTATED RINGERS 1,000 ML IV SCH (19:05)
[2021-10-12] MEDS: OXYTOCIN 30 UNITS in 0.9% NS 30 UNIT/500 ML INFUS.BAG IVPB SCH (19:06)
[2021-10-12] MEDS ORDERED: SENNOSIDES/DOCUSATE COMBO (SENNA PLUS) TABLET (UD) PO PRN (22:00)
[2021-10-13 05:56] VITALS: PULSE 68
[2021-10-13 08:06] VITALS: BP 147/85; TEMP 98.7
[2021-10-13] MEDS: NIFEdipine E.R 60 MG TABLET PO SCH (10:11)
== END 2021-10-13 11:50 | disposition home or self-care (01) | DRG 807 ==
LOC: JLDR 14:07 → J3W 10-11 08:39
PROVIDERS: ADMIT Obstetrics & Gynecology; ATTEND Obstetrics & Gynecology
PROC: 3E033VJ Introduction of Other Hormone into Peripheral Vein, Percutaneous Approach (ICD-10-PCS; 2021-10-10)
PROC: 10E0XZZ Delivery of Products of Conception, External Approach (ICD-10-PCS; principal; 2021-10-11)
PROC: 10907ZC Drainage of Amniotic Fluid, Therapeutic from Products of Conception, Via Natural or Artificial Opening (ICD-10-PCS; 2021-10-11)
PROC: 0HQ9XZZ Repair Perineum Skin, External Approach (ICD-10-PCS; 2021-10-11)
DX: O10.92 Unspecified pre-existing hypertension complicating childbirth (principal); Z37.0 Single live birth; O24.420 Gestational diabetes mellitus in childbirth, diet controlled; O70.0 First degree perineal laceration during delivery; Z3A.38 38 weeks gestation of pregnancy
CPT/HCPCS: 36415; 36600; 59409; 80048; 81003; 82570; 82803; 82962; 82977; 83010; 84156; 84450; 84460; 84550; 85025; 85045; 85610; 85730; 86780; 86850; 86900; 86901; C9803-CS; U0003; U0005